=== PATIENT | female | born 1950 ===

== ENCOUNTER 2016-06-06 12:03 | Emergency (ER) | payer BC ==
[2016-06-06 12:44] VITALS: BP 134/64
--- NOTE | 2016-06-06 13:08 | UC ---
Ear Complaint HPI - HPI Summary HPI Summary: Had 1 day of lots of sneezing and nasal discharge about 1 week ago. Took holly- seltzer cold for 2 days and that went away. Had 1 day of intermittent R ear pain and constant fullness about 5 days ago, and the pain resolved but the plugged feeling hasn't left her. Denies fever or continued nasal congestion. - History of Current Complaint Chief Complaint: UCEar Stated Complaint: PLUGGED RIGHT EAR Time Seen by Provider: 06/06/16 12:47 Hx Obtained From: Patient ?: No Onset/Duration: Gradual Onset, Lasting Days Severity Initially: Mild Severity Currently: Mild Aggravating Factors: Nothing Alleviating Factors: Nothing Associated Signs/Symptoms: Positive: Hearing Loss - Allergies/Home Medications Allergies/Adverse Reactions: Allergies Allergy/AdvReac Type Severity Reaction Status Date / Time No Known Allergies Allergy Verified 06/06/16 12:43 Home Medications: Home Medications Atorvastatin* [Lipitor 10 MG*] 10 mg PO 1700 06/06/16 [History Confirmed ] PMH/Surg Hx/FS Hx/Imm Hx Cardiovascular History Of: Reports: Hypertension - Surgical History Surgery Procedure, Year, and Place: x3 - Family History Known Family History: Positive: Hypertension - Social History Alcohol Use: Occasionally Substance Use Type: None Smoking Status (MU): Former Smoker Review of Systems Constitutional: Negative Skin: Negative Eyes: Negative ENT: Other - ear plugged Respiratory: Negative Cardiovascular: Negative Gastrointestinal: Negative Genitourinary: Negative Motor: Negative Neurovascular: Negative Musculoskeletal: Negative Neurological: Negative Psychological: Negative All Other Systems Reviewed And Are Negative: Yes Physical Exam Triage Information Reviewed: Yes Appearance: Well-Appearing, No Pain Distress, Well-Nourished Vital Signs: Initial Vital Signs Temp 98.2 F 06/06/16 12:38 Pulse 92 06/06/16 12:38 Resp 16 06/06/16 12:38 BP 134/64 06/06/16 12:38 Pulse Ox 98 06/06/16 12:38 Vital Signs Reviewed: Yes Eye Exam: Normal Eyes: Positive: Conjunctiva Clear ENT Exam: Other - skin on ears around entrance to ear canals dry, flaking, excoriated, inflamed ENT: Positive: Hearing grossly normal, Pharynx normal, TMs normal, Other: - FBs in R ear -- both covers for hearing aides, removed by flushing and alligator forceps, performed by TONG CARRIER. Pt kranthi well. Dental Exam: Normal Neck exam: Normal Neck: Positive: Supple, Nontender, No Lymphadenopathy Respiratory Exam: Normal Respiratory: Positive: Chest non-tender, Lungs clear, Normal breath sounds, No respiratory distress, No accessory muscle use Cardiovascular Exam: Normal Cardiovascular: Positive: RRR, No Murmur Musculoskeletal Exam: Normal Neurological Exam: Normal Psychological Exam: Normal Skin Exam: Normal Ear Complaint Course/Dx - Differential Dx/Diagnosis Provider Diagnoses: R ear FB removals. Bilat ears dermatitis Discharge - Discharge Plan Condition: Stable Disposition: HOME Prescriptions: Triamcinolone 0.5% CREAM(NF) [Triamcinolone 0.5% CREAM*] 1 applic TOPICAL BID # 15 gm Patient Education Materials: Ear Foreign Body (ED), Dermatitis (ED) Referrals: Aby Glez MD [Primary Care Provider] -
== END 2016-06-06 13:38 | disposition home or self-care (01) ==
LOC: UCCORT 12:03
DX: T16.1XXA Foreign body in right ear, initial encounter (principal); X58.XXXA Exposure to other specified factors, initial encounter; Y93.9 Activity, unspecified; Y92.9 Unspecified place or not applicable; L30.9 Dermatitis, unspecified; Z87.891 Personal history of nicotine dependence
CPT/HCPCS: 99203; G0463

== ENCOUNTER 2016-06-30 14:32 | Emergency (ER) | payer BC ==
[2016-06-30 15:15] VITALS: BP 132/68
--- NOTE | 2016-06-30 16:10 | ED ---
Throat Pain/Nasal Congestion - HPI Summary HPI Summary: Has the plastic tip of a hearing aid stuck in left ear canal x 2 day. No pain/ decreased hearing/ear discharge. - History of Current Complaint Chief Complaint: UCEar Time Seen by Provider: 06/30/16 15:44 Hx Obtained From: Patient Onset/Duration: Lasting Days Severity: Mild - Epiglottits Risk Factors Epiglottis Risk Factors: Negative - Allergies/Home Medications Allergies/Adverse Reactions: Allergies Allergy/AdvReac Type Severity Reaction Status Date / Time No Known Allergies Allergy Verified 06/30/16 15:08 PMH/Surg Hx/FS Hx/Imm Hx Previously Healthy: No Cardiovascular History: Reports: Hx Hypertension - not on meds EENT History: Reports: Hx Hearing Aid - Surgical History Surgery Procedure, Year, and Place: x3 Infectious Disease History: No Infectious Disease History: Denies: Traveled Outside the [place] in Last 30 Days - Family History Known Family History: Positive: Hypertension - Social History Alcohol Use: Occasionally Substance Use Type: Reports: None Smoking Status (MU): Former Smoker Review of Systems Constitutional: Negative Eyes: Negative Positive: Other - left ear fb Cardiovascular: Negative Respiratory: Negative Musculoskeletal: Negative Neurological: Negative Psychological: Normal All Other Systems Reviewed And Are Negative: Yes Physical Exam - Summary Physical Exam Summary: NAD. Rt TM/ear canal wnl. Left ear canal has a piece of clear plastic next to the tm. No ear discharge, TM appears intact. Triage Information Reviewed: Yes Vital Signs On Initial Exam: Initial Vitals Temp Pulse Resp BP Pulse Ox 98 F 88 18 132/68 99 06/30/16 15:08 06/30/16 15:08 06/30/16 15:08 06/30/16 15:08 06/30/16 15:08 Vital Signs Reviewed: Yes Appearance: Positive: Well-Appearing, No Pain Distress, Well-Nourished Skin: Positive: Skin Color Reflects Adequate Perfusion Head/Face: Positive: Normal Head/Face Inspection Eyes: Positive: Normal ENT: Positive: Other - Piece of clear plastic rt ear canal. Rt TM wnl Neck: Positive: Supple Respiratory/Lung Sounds: Positive: Breath Sounds Present Musculoskeletal: Positive: Normal Neurological: Positive: Normal Psychiatric: Positive: Normal Diagnostics - Vital Signs Vital Signs Temp Pulse Resp BP Pulse Ox 06/30/16 15:08 98 F 88 18 132/68 99 - Laboratory Lab Statement: Any lab studies that have been ordered have been reviewed, and results considered in the medical decision making process. EENT Course/Dx - Course Assessment/Plan: LEFT EAR FLUSHED WITHOUT APPARENT MOVEMENT OF FB. DISCUSSED WITH DR RODRIGUEZ, ENT, WHO WILL SEE HER TOMORROW, 07/01/16, AT 8AM. DISCUSSED WITH PATIENT. DISCHARGE HOME STABLE. - Diagnoses Provider Diagnoses: Ear foreign body Discharge - Discharge Plan Condition: Stable Disposition: HOME Patient Education Materials: Ear Foreign Body (ED) Referrals: Aby Glez MD [Primary Care Provider] - Kobe Rodriguez MD [Medical Doctor] - Additional Instructions: FOLLOW UP WITH DR RODRIGUEZ TOMORROW, 07/01/16, AT 8AM. GO TO THE EMERGENCY DEPARTMENT FOR ANY WORSENING OF YOUR CONDITION OR QUESTIONS OR CONCERNS.
== END 2016-06-30 16:46 | disposition home or self-care (01) ==
LOC: UCCORT 14:32
DX: T16.2XXA Foreign body in left ear, initial encounter (principal); X58.XXXA Exposure to other specified factors, initial encounter; Y93.9 Activity, unspecified; Y92.9 Unspecified place or not applicable; I10 Essential (primary) hypertension; Z87.891 Personal history of nicotine dependence
CPT/HCPCS: 99212; G0463

== ENCOUNTER 2017-06-28 18:08 | Emergency (ER) | payer MEDICARE, BC ==
[2017-06-28 19:41] VITALS: BP 129/59
[2017-06-28] MEDS ORDERED: Lidocaine 2% VISCOUS* 15 ML UDC PO ONE (20:15)
--- NOTE | 2017-06-28 20:16 | UC ---
Throat Pain/Nasal Devin HPI - HPI Summary HPI Summary: Pt with head congestion, max sinus pressure, nasal congestion, PND, sore throat and laryngitis. Pt with sx x 1 week. No relief with OTC meds. no fever, chills, rash. No cough. no cp, sob, abd pain. 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 Pt's medications reviewed this visit - History of Current Complaint Chief Complaint: UCRespiratory Stated Complaint: SORE THROAT, SINUS Time Seen by Provider: 06/28/17 19:51 Hx Obtained From: Patient ?: No Onset/Duration: Gradual Onset Pain Intensity: 7 Pain Scale Used: 0-10 Numeric Cough: Nonproductive - Allergies/Home Medications Allergies/Adverse Reactions: Allergies Allergy/AdvReac Type Severity Reaction Status Date / Time No Known Allergies Allergy Verified 06/28/17 19:33 Home Medications: Home Medications Meloxicam [Mobic] 15 mg PO DAILY 06/28/17 [History Confirmed 06/28/17] Olmesartan/Hydrochlorothiazide [Olmesartan-Hctz 20-12.5 mg Tab] 1 tab DAILY 02/04 [History Confirmed 06/28/17] Venlafaxine EXT RELEASE CAP* [Effexor Xr CAP*] 150 mg PO DAILY 06/28/17 [ History Confirmed 06/28/17] PMH/Surg Hx/FS Hx/Imm Hx Previously Healthy: Yes - Surgical History Surgical History: Yes Surgery Procedure, Year, and Place: x3 - Family History Known Family History: Positive: Hypertension - Social History Occupation: Employed Part-time, Retired Lives: With Family Alcohol Use: None Substance Use Type: None Smoking Status (MU): Former Smoker - Immunization History Most Recent Influenza Vaccination: none Most Recent Tetanus Shot: UNK Most Recent Pneumonia Vaccination: none Review of Systems Constitutional: Negative ENT: Sore Throat, Nasal Discharge, Sinus Congestion Respiratory: Cough Cardiovascular: Negative All Other Systems Reviewed And Are Negative: Yes Physical Exam Triage Information Reviewed: Yes Appearance: Well-Appearing, No Pain Distress Vital Signs: Initial Vital Signs Temp 98.9 F 06/28/17 19:35 Pulse 95 06/28/17 19:35 Resp 16 06/28/17 19:35 BP 129/59 06/28/17 19:35 Pulse Ox 99 06/28/17 19:35 Vital Signs Reviewed: Yes Eye Exam: Normal Eyes: Positive: Conjunctiva Clear ENT Exam: Normal ENT: Positive: Normal ENT inspection, Hearing grossly normal, Pharynx normal, Nasal congestion, TM red - left ear + erythema, fluid, Sinus tenderness, Uvula midline, Other - laryngitis Neck exam: Normal Neck: Positive: Supple, Nontender, No Lymphadenopathy Respiratory Exam: Normal Respiratory: Positive: Chest non-tender, Lungs clear, Normal breath sounds, No respiratory distress, No accessory muscle use Cardiovascular Exam: Normal Cardiovascular: Positive: RRR, No Murmur Abdominal Exam: Normal Abdomen Description: Positive: Nontender, Soft Bowel Sounds: Positive: Present Neurological Exam: Normal Neurological: Positive: Alert Psychological Exam: Normal Skin Exam: Normal Re-Evaluation - Re-Evaluation First Eval Change: Improved - Pt with + relief with lidocaine declined work note Throat Pain/Nasal Course/Dx - Course Course Of Treatment: Pt with progressive sinus congestion, sore throat, laryngitis, and ear fullness. pt with erythema, fluid left ear. Will trial lidcoaine. abx. hydrate. motrin/apap. flonase. humidify air - Differential Dx/Diagnosis Provider Diagnoses: rhinosinusitis Discharge - Sign-Out/Discharge Documenting (check all that apply): Discharge - Discharge Plan Condition: Stable Disposition: HOME Prescriptions: Amoxicillin PO (*) [Amoxicillin 875 MG (*)] 875 mg PO BID #19 tab Fluticasone NASAL SPRAY 50MCG* [Flonase NASAL SPRAY 50MCG*] 2 spray BOTH NARES DAILY #1 btl Lidocaine 2% VISCOUS* 15 ml TD Q6HR PRN #1 btl PRN Reason: Sore Throat Patient Education Materials: Rhinosinusitis (ED) Referrals: Aby Glez MD [Primary Care Provider] - Additional Instructions: - Okay to alternate ibuprofen (Advil, Motrin) and Tylenol every 3 hours for pain. Take with food. Do NOT take for more than 4-5 days - Okay to gargle and spit every 4 hours as needed for pain. Okay to use medication for your throat as prescribed - Stay well hydrated - frequent sips of cold fluids will be soothing to your throat (popsicles, jello, ice cream, ice water). Avoid excess caffeine until your symptoms have resolved. - Do not share eating, drinking utensils. Throw out your toothbrush when your symptoms resolved -Throat infections are spread by oral secretions - do not share eating or drinking utensils until you symptoms are resolved. Clean items that may get your secretions such as cell phones, ipads, computer mouse, television remotes Once you have been on antibiotics for 2 days, change your toothbrush and your pillowcase. - humidify the room where you sleep - use nasal spray as instructed - take antibiotic as prescribed - okay to take an anti-histamine such as Claritin, Rachell, zyrtec - Contact your doctor to arrange a follow-up appointment as needed - Billing Disposition and Condition Condition: STABLE Disposition: HOME
[2017-06-28] MEDS ORDERED: Amoxicillin PO (*) 500 MG CAP PO ONE (20:34)
== END 2017-06-28 20:43 | disposition home or self-care (01) ==
LOC: UCCORT 18:08
DX: J32.9 Chronic sinusitis, unspecified (principal); Z87.891 Personal history of nicotine dependence
CPT/HCPCS: 99212; A9270-GY; G0463

== ENCOUNTER 2017-07-31 17:46 | Emergency (ER) | payer MEDICARE, BC ==
--- OUTSIDE RECORDS SUMMARY | 2017-07-31 19:07 | XMS REPORT ---
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 Aby Glez MD Primary Care Physician Unavailable Payers Type Date Identification Numbers Payment Provider Subscriber Medicare Primary Policy Number: [id number] Medicare Lorena Mistry PayID: [id number] [address] [place] [address] Commercial Policy Number: [id number] TUCKER Lorena Mistry PayID: [id number] [place] [address] Commercial Expires: 2014 Policy Number: [id number] TUCKER Mistry Group Number: [id number] [address] PayID: [id number] [place] [address] Problems Description No Information Family History Date Family Member(s) Problem(s) Comments Father Emphysema Mother Chronic Obstructive Pulmonary Disease (COPD) First Brother Chronic Obstructive Pulmonary Disease (COPD) First Brother Lung Cancer First Sister Crohn's Disease Social History Type Date Description Comments 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 ago. ETOH Use Current Alcohol Use - 1-3 Days A Week. Recreational Drug Use Never Used Drugs Allergies, Adverse Reactions, Alerts Date Description Reaction Status Severity Comments 11/25/2014 NKDA active Medications Medication Date Status Form Strength Qnty SIG Indications Ordering Provider Prednisone Active Tablets 10mg 5tabs 1 by mouth Coburn, 018 every Kobe, morning M.D. Effexor XR 0 Active Caps ER 150mg Unknown 000 24HR Benicar HCT 0 Active Tablets 20-12.5 Unknown 000 Lipitor Active Tablets 10mg 1 po qd Unknown 000 Meloxicam Active Tablets 15mg 30tabs po qd pc Unknown 000 prn Amoxicillin Active Capsules 500mg 1 by mouth Unknown 000 three times a day x 10 days Bactroban Hx Ointment 2% 1units apply over Coburn, 015 - the Kobe, affected M.D. 017 area twice daily Vital Signs Date Vital Result Comment 07/04/2017 Weight 185.50 lb Height 68 inches 5'8" BMI (Body Mass Index) 28.2 kg/m2 BP Systolic 118 mmHg BP Diastolic 71 mmHg Heart Rate 82 /min O2 % BldC Oximetry 97 % room air Body Temperature 97.4 F Pain Level 0 07/01/2016 Weight 194.38 lb Height 67.5 inches 5'7.50" BMI (Body Mass Index) 30.0 kg/m2 BP Systolic 154 mmHg BP Diastolic 89 mmHg Heart Rate 92 /min O2 % BldC Oximetry 96 % Body Temperature 97.6 F 11/25/2014 Weight 187.00 lb Height 67.5 inches 5'7.50" BMI (Body Mass Index) 28.9 kg/m2 BP Systolic 136 mmHg BP Diastolic 70 mmHg Heart Rate 89 /min O2 % BldC Oximetry 94 % Body Temperature 97.8 F Neck Circumference in inches 15.5 01/07/2009 Weight 195.00 lb Height 68 inches 5'8" BMI (Body Mass Index) 29.6 kg/m2 10/28/2008 Weight 192.00 lb Height 68 inches 5'8" BMI (Body Mass Index) 29.2 kg/m2 BP Systolic 120 mmHg BP Diastolic 70 mmHg Heart Rate 108 /min O2 % BldC Oximetry 97 % Results Description No Information Procedures Date CPT Code Description Status 07/01/2016 26046 Removal Foreign Body From External Auditory Canal-W/O Completed Gen. Anesth 12/25/2014 72209 Sleep Staging 4Or More Para Completed 11/25/2014 59653 Tympanometry Completed 11/25/2014 94451 Tympanometry Completed 11/25/2014 43676 Audiometry, Comprehensive Completed 11/25/2014 02651 Audiometry, Comprehensive Completed 12/24/2008 30583 Sleep Staging 4Or More Para Completed 10/28/2008 80062 Fiberoptic Laryngoscopy,Diag. Completed Encounters Type Date Location Provider CPT E/M Dx Office Visit 07/04/2017 8:45a [place] [address] J01.90 H69.92 Office Visit 01/08/2015 11:00a Main Office Kobe Coburn M.D. 84338 G47.33 J34.2 Office Visit 11/25/2014 3:45p Main Office Kobe Coburn M.D. 38060 389.18 [phone] 470 Office Visit 01/07/2009 2:30p Main Office Kobe Coburn M.D. 65929 780.53 327.23 470 Office Visit 10/28/2008 1:30p Main Office Kobe Coburn M.D. 46965 780.53 327.23 470 Plan of Care No Information Available
--- OUTSIDE RECORDS SUMMARY | 2017-07-31 19:07 | XMS REPORT ---
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 Aby Glez MD Primary Care Physician Unavailable Payers Type Date Identification Numbers Payment Provider Subscriber Commercial Expires: Policy Number: BS TUCKER Lorena Mistry 2014 [id number] Group Number: [id number] [address] PayID: [id number] [place] [address] Commercial Policy Number: [id number] TUCKER Lorena Mistry PayID: [id number] [address] [address] [place] [address] Problems Description No Information Family History Date [...] Form Strength Qnty SIG Indications Ordering Provider Effexor XR Active Caps ER 150mg Unknown 000 24HR Benicar HCT Active Tablets 20-12.5 Unknown 000 Lipitor Active Tablets 10mg 1 po qd Unknown 000 Meloxicam Active Tablets 15mg 30tabs po qd pc Unknown 000 prn Amoxicillin Active Capsules 500mg 1 by mouth Unknown 000 three times a day x 10 days Bactroban Hx Ointment 2% 1units apply over [place] 015 - the Kobe, affected [place] 017 area twice daily Vital Signs Date [...] Procedures Date CPT Code Description Status 07/01/2016 60250 Removal Foreign Body From External Auditory Canal-W/O Completed Gen. Anesth 12/25/2014 59753 Sleep Staging 4Or More Para Completed 11/25/2014 20858 Tympanometry Completed 11/25/2014 59539 Tympanometry Completed 11/25/2014 89606 Audiometry, Comprehensive Completed 11/25/2014 18881 Audiometry, Comprehensive Completed 12/24/2008 96085 Sleep Staging 4Or More Para Completed 10/28/2008 12212 Fiberoptic Laryngoscopy,Diag. Completed Encounters Type Date Location Provider CPT E/M Dx Office Visit 01/08/2015 11:00a Main Office Kobe Coburn M.D. 83044 G47.33 J34.2 Office Visit 11/25/2014 3:45p Main Office Kobe Coburn M.D. 35966 389.18 690.18 327.23 470 Office Visit 01/07/2009 2:30p Main Office Kobe Coburn M.D. 60031 780.53 327.23 470 Office Visit 10/28/2008 1:30p Main Office Kobe Coburn M.D. 70491 780.53 327.23 470 Plan of Care No Information Available
[2017-07-31 19:12] VITALS: BP 135/66
--- NOTE | 2017-07-31 20:07 | UC ---
UC General HPI - HPI Summary HPI Summary: pt c/o sinus congestion/presssure, sore throat and cough with chest congestion for 7 days. + COULTER but no fever. recently tx for sinus infection and got better but briefly. also went to ent and was tx with steroid for fluid in ear. denies itchy eyes and sneezing. - History of Current Complaint Hx Obtained From: Patient Onset/Duration: Gradual Onset Timing: Constant Pain Intensity: 0 Aggravating: nothing Associated Signs & Symptoms: Positive: Cough, Headache. Negative: Fever <Julianna Hinson - Last Filed: 07/31/17 20:09> <Erica Glez - Last Filed: 07/31/17 22:42> - History of Current Complaint Chief Complaint: UCRespiratory Stated Complaint: SINUSES, COUGH Time Seen by Provider: 07/31/17 19:48 - Allergy/Home Medications Allergies/Adverse Reactions: Allergies Allergy/AdvReac Type Severity Reaction Status Date / Time No Known Allergies Allergy Verified 07/31/17 19:09 PMH/Surg Hx/FS Hx/Imm Hx - Additional Past Medical History Additional PMH: sinus infection - Surgical History Surgical History: Yes Surgery Procedure, Year, and Place: x3 - Family History Known Family History: Positive: Hypertension - Social History Lives: With Family Alcohol Use: None Substance Use Type: None Smoking Status (MU): Former Smoker - Immunization History Most Recent Influenza Vaccination: none Most Recent Tetanus Shot: UNK Most Recent Pneumonia Vaccination: none Vaccination Up to Date: Yes <Julianna Hinson - Last Filed: 07/31/17 20:09> Review of Systems Constitutional: Negative Skin: Negative Eyes: Negative ENT: Sore Throat, Sinus Congestion, Sinus Pain/Tenderness Respiratory: Cough Cardiovascular: Negative Gastrointestinal: Negative Genitourinary: Negative Motor: Negative Neurovascular: Negative Musculoskeletal: Negative Neurological: Headache Psychological: Negative Is Patient Immunocompromised?: No All Other Systems Reviewed And Are Negative: Yes <Julianna Hinson - Last Filed: 07/31/17 20:09> Physical Exam Triage Information Reviewed: Yes Appearance: Well-Appearing Vital Signs: Initial Vital Signs Temp 98.5 F 07/31/17 19:07 Pulse 88 07/31/17 19:07 Resp 17 07/31/17 19:07 BP 135/66 07/31/17 19:07 Pulse Ox 98 07/31/17 19:07 Vital Signs Reviewed: Yes Eyes: Positive: Conjunctiva Clear ENT: Positive: Pharynx normal, Nasal congestion, TMs normal, Sinus tenderness. Negative: Nasal drainage Neck: Positive: Supple, Nontender, No Lymphadenopathy Respiratory: Positive: Lungs clear, Decreased breath sounds, Other: - Frequent NPC. Cardiovascular: Positive: RRR, No Murmur Abdomen Description: Positive: Nontender, No Organomegaly, Soft Bowel Sounds: Positive: Present Musculoskeletal: Positive: ROM Intact Neurological: Positive: Alert Psychological: Positive: Age Appropriate Behavior Skin Exam: Normal <Julianna Hinson - Last Filed: 07/31/17 20:09> Vital Signs: Initial Vital Signs Temp 98.5 F 07/31/17 19:07 Pulse 88 07/31/17 19:07 Resp 17 07/31/17 19:07 BP 135/66 07/31/17 19:07 Pulse Ox 98 07/31/17 19:07 <Erica Glez - Last Filed: 07/31/17 22:42> Course/Dx - Course Course Of Treatment: recently tx for sinus infection. current s/s's x 1 week. will tx with flonase, albuterol and steroid. if not helping, will add the antibiotic. pt advised of risk for c-diff colitis with repeat antibiotics and agrees to start a probiotic if she takes the antibiotic. - Differential Dx - Multi-Symptom Provider Diagnoses: Sinus congestion. cough. <Julianna Hinson - Last Filed: 07/31/17 20:09> Discharge - Sign-Out/Discharge Documenting (check all that apply): Discharge/Admit/Transfer - Billing Disposition and Condition Condition: STABLE Disposition: HOME <Julianna Hinson - Last Filed: 07/31/17 20:09> - Billing Disposition and Condition Condition: STABLE Disposition: HOME <Erica Glez - Last Filed: 07/31/17 22:42> - Discharge Plan Condition: Stable Disposition: HOME Prescriptions: Albuterol HFA INHALER* [Ventolin HFA Inhaler*] 2 puff INH Q6H #1 mdi Amoxicillin/Clavulanate TAB* [Augmentin TAB 875*] 875 mg PO BID #14 tab predniSONE TAB* [Deltasone TAB*] 40 mg PO DAILY #10 tab Patient Education Materials: Sinusitis (ED), Acute Cough (ED) Referrals: Aby Glez MD [Primary Care Provider] - 7 Days Additional Instructions: START THE ALBUTEROL AND PREDNISONE PLUS OVER THE COUNTER FLONASE IMMEDIATELY. IF NOT IMPROVING IN 2 DAYS OR IF WORSE, ADD THE AUGMENTIN. IF YOU ADD THE AUGMENTIN, START A PROBIOTIC Attestation Statement User Type: Provider - I was available for consult. This patient was seen by the FRANTZ. The patient was not presented to, seen by, or examined by me. -Dorcas <Erica Glez - Last Filed: 07/31/17 22:42>
== END 2017-07-31 20:13 | disposition home or self-care (01) ==
LOC: UCCORT 17:46
DX: R09.81 Nasal congestion (principal); R05 Cough; Z87.891 Personal history of nicotine dependence
CPT/HCPCS: 99212; G0463